=== PATIENT | female | born 1940 | race Hispanic/Latino ===

== ENCOUNTER 2019-08-13 09:49 | Observation (INO) | payer OTHER ==
[~2019-08-13] VITALS: Ht 175.3 cm; Wt 59.2 kg
[~2019-08-13 09:49] MED LIST: AMLO10TA7 PO; ASPI-1197 PO; ATOR40TA69 PO; CARV25TA PO; CLOP75TA14 PO; FISH1CAP49 PO; HYDR-4154 PO; INS7030 SQ; ISOS60TA4 PO; LISI40TA4 PO; MULT-1258 PO; RANO500T3 PO
[2019-08-13 10:52] LABS: APPEARANCE,URINE TURBID (CLEAR); BILIRUBIN,URINE NEGATIVE (NEGATIVE); COLOR,URINE YELLOW (YELLOW); GLUCOSE, URINE (UA) 250 mg/dL (NEGATIVE); KETONES,URINE NEGATIVE (NEGATIVE); LEUKOCYTE ESTERASE ,URINE LARGE (NEGATIVE); NITRATE,URINE NEGATIVE (NEGATIVE); OCCULT BLOOD,URINE SMALL (NEGATIVE); PROTEIN,URINE 100 mg/dL (NEGATIVE); UROBILINOGEN,URINE 0.2 mg/dL (0.2-1.0)
[2019-08-13 11:03] LABS: WBC,URINE Full Field /HPF (0-1)
[2019-08-13 11:08] LABS: BASOPHILS % (AUTO) 0.4 % (0.0-5.0); EOSINOPHILS % (AUTO) 0.8 % (0.0-8.0); LYMPHOCYTES % (AUTO) 9.6 % (21.0-51.0); MEAN CORPUSCULAR HEMOGLOBIN 33.6 pg (27.0-33.0); MEAN CORPUSCULAR HGB CONC 33.4 g/dL (32.0-36.0); MEAN CORPUSCULAR VOLUME 100.6 fL (79-99); MONOCYTES % (AUTO) 6.4 % (3.0-13.0); NEUTROPHILS % (AUTO) 82.8 % (40.0-77.0); PLATELET COUNT (AUTO) 192 K/uL (130-400); RED BLOOD CELL COUNT(AUTO) 3.58 MIL/uL (4.00-5.50); RED CELL DISTRIBUTION WIDTH 19.8 % (11.0-15.5); WHITE BLOOD COUNT (AUTO) 7.4 K/uL (4.8-10.8)
[2019-08-13 11:08] LABS: BACTERIA,URINE Moderate /HPF (None Seen); SQUAMOUS EPITHELIAL CELL,UR 0-2 /HPF (0-2); YEAST,URINE BUDDING Rare /HPF (None Seen)
[2019-08-13 11:15] LABS: CREATININE 5.1 mg/dL (0.5-1.5); POTASSIUM 4.9 mmol/L (3.5-5.1)
[2019-08-13 11:31] LABS: ALBUMIN 3.1 g/dL (3.5-5.0); BILIRUBIN,DIRECT 0.1 mg/dL (0.0-0.3); BILIRUBIN,TOTAL 0.4 mg/dL (0.2-1.0); TOTAL PROTEIN, SERUM 7.5 g/dL (6.0-8.3)
[2019-08-13] MEDS ORDERED: SODIUM CHLORIDE 0.9% 1000ML 1,000 ML IV ONE ×3 (12:59→18:24)
[2019-08-13] MEDS ORDERED: ZOSYN 3.375GM+NS 50ML 50 ML IV ONE ×2 (12:59→13:24)
[2019-08-13] MEDS ORDERED: SODIUM CHLORIDE 0.9% 1000ML 1,000 ML IV SCH (15:41)
[2019-08-13] MEDS ORDERED: ACETAMINOPHEN 325 MG TAB PO PRN (15:45)
[2019-08-13] MEDS ORDERED: ONDANSETRON HCL 4 MG/2 ML VIAL IV PRN (15:45)
[2019-08-13] MEDS ORDERED: LACTULOSE 20 GM/30 ML UDCUP PO PRN (15:45)
[2019-08-14] VITALS (7 sets, daily range): BP systolic 121–164; BP diastolic 40–69
[2019-08-14] MEDS: ZOSYN 3.375GM+NS 50ML 50 ML IV SCH ×3 (01:31→13:25)
[2019-08-14] MEDS ORDERED: BACL10TA PO (01:43)
[2019-08-14] MEDS ORDERED: TRAM50TA4 PO (01:43)
[2019-08-14] MEDS ORDERED: LINA145C PO (01:43)
[2019-08-14] MEDS ORDERED: LINE600T14 PO (01:47)
[2019-08-14 05:30] LABS: BASOPHILS % (AUTO) 0.6 % (0.0-5.0); EOSINOPHILS % (AUTO) 2.4 % (0.0-8.0); LYMPHOCYTES % (AUTO) 10.7 % (21.0-51.0); MEAN CORPUSCULAR HEMOGLOBIN 33.7 pg (27.0-33.0); MEAN CORPUSCULAR HGB CONC 33.1 g/dL (32.0-36.0); MEAN CORPUSCULAR VOLUME 101.9 fL (79-99); MONOCYTES % (AUTO) 8.9 % (3.0-13.0); NEUTROPHILS % (AUTO) 77.4 % (40.0-77.0); NUCLEATED RED BLOOD CELLS 0.2 % (0.0-0.19); PLATELET COUNT (AUTO) 148 K/uL (130-400); RED BLOOD CELL COUNT(AUTO) 3.53 MIL/uL (4.00-5.50); RED CELL DISTRIBUTION WIDTH 19.3 % (11.0-15.5); WHITE BLOOD COUNT (AUTO) 6.4 K/uL (4.8-10.8)
[2019-08-14 05:43] LABS: ALBUMIN 2.6 g/dL (3.5-5.0); BILIRUBIN,TOTAL 0.4 mg/dL (0.2-1.0); CREATININE 3.3 mg/dL (0.5-1.5); PHOSPHORUS 3.9 mg/dL (2.5-4.9); TOTAL PROTEIN, SERUM 6.5 g/dL (6.0-8.3)
[2019-08-14] MEDS: INSULIN HUMULIN R 100 UNIT/ML 3ML SQ SCH ×3 (07:13→21:02)
--- NOTE | 2019-08-14 08:00 | NUR ---
PT AWAKE , BUT FORGETFUL . ORIENTATED TO HER CARE AND ENVIROMENT. REVIEW FALL RISK AND PT IS CLOSE TO NURSES STATION AND CALL LIGHT IN REACH. NOTED NO SOB . OR DISCOMFORT. SKIN CARE PT IS ON A WAFFLE MATTRESS, PT IS A DIALYISIS PT . OR Tuesday, TUESDAY.
--- NOTE | 2019-08-14 09:30 | NUR ---
INITIAL ATTEMPTED TO CONDUCT INTERVIEW WITH PT -UNABLE TO UNDERSTAND HER SENTENCES WILL FOLLOW UP WITH FAMILY IN AM. REVIEWED NOTES- SAW THAT DR. COLBERT STATES THE FAMILY AND PATIENT HAVE BEEN OFFERED SNF PLACEMENT IN THE PAST,, HAVE DECLINED Addendum: 08/15/19 at 0906 by JULISA FONTENOT RN CM Amended: Links added.
--- NOTE | 2019-08-14 09:50 | NUR ---
DR. COLBERT HERE AND REVIEW ER. CARE .WITH CARE TO CONT. .
[2019-08-14] MEDS: ENOXAPARIN SODIUM 30 MG/0.3 ML SQ SCH (13:26)
[2019-08-14] MEDS: FAMOTIDINE/PF 20 MG/2 ML VIAL IV SCH (13:27)
--- NOTE | 2019-08-14 15:00 | NUR ---
[facility] consult Patient assessed as ordered. Patient with pressure ulcer to sacrum of unknown duration. [facility] recommendations submitted. Instructed patient to turn/reposition q 2hrs/prn; patient verbalized understanding but states she needs assistance. Advised patient to use call button to notify staff of need for help. Deejay mattress is in place. Addendum: 08/14/19 at 1722 by SPENCER MCKINLEY RN/LAYO Amended: Links added.
[2019-08-15 03:00] VITALS: BP 146/60
[2019-08-15] MEDS: ZOSYN 3.375GM+NS 50ML 50 ML IV SCH ×2 (03:39→16:02)
[2019-08-15] MEDS: INSULIN HUMULIN R 100 UNIT/ML 3ML SQ SCH ×3 (05:26→17:17)
[2019-08-15] MEDS ORDERED: TRAMADOL HCL 50 MG TABLET PO PRN (07:45)
[2019-08-15] MEDS ORDERED: BACLOFEN 10 MG TABLET PO PRN (07:45)
[2019-08-15 08:00] VITALS: BP 170/59
[2019-08-15] MEDS ORDERED: RANOLAZINE 500 MG TAB.SR.12H PO SCH (09:00)
[2019-08-15] MEDS ORDERED: AMLODIPINE BESYLATE 5 MG TAB PO SCH (09:00)
[2019-08-15] MEDS ORDERED: LINZESS 145 MCG PO SCH (09:00)
[2019-08-15] MEDS ORDERED: HYDRALAZINE HCL 25 MG TABLET PO SCH (09:00)
[2019-08-15] MEDS ORDERED: CARVEDILOL 25 MG TABLET PO SCH (09:00)
[2019-08-15] MEDS ORDERED: CLOPIDOGREL BISULFATE 75 MG TAB PO SCH (09:00)
[2019-08-15] MEDS ORDERED: HONEY 1 APPL/ML TUBE TP SCH (09:00)
[2019-08-15] MEDS ORDERED: LISINOPRIL 40 MG TABLET PO SCH (09:00)
[2019-08-15] MEDS: FAMOTIDINE/PF 20 MG/2 ML VIAL IV SCH (09:35)
[2019-08-15] MEDS: ENOXAPARIN SODIUM 30 MG/0.3 ML SQ SCH (09:36)
[2019-08-15 10:23] LABS: HEMATOCRIT 29.2 % (36-48); MEAN CORPUSCULAR HEMOGLOBIN 34.1 pg (27.0-33.0); MEAN CORPUSCULAR HGB CONC 33.9 g/dL (32.0-36.0); MEAN CORPUSCULAR VOLUME 100.8 fL (79-99); NUCLEATED RED BLOOD CELLS 0.1 % (0.0-0.19); PLATELET COUNT (AUTO) 139 K/uL (130-400); RED CELL DISTRIBUTION WIDTH 19.1 % (11.0-15.5); WHITE BLOOD COUNT (AUTO) 6.1 K/uL (4.8-10.8)
[2019-08-15 10:35] LABS: CREATININE 4.4 mg/dL (0.5-1.5); PHOSPHORUS 5.3 mg/dL (2.5-4.9); POTASSIUM 4.6 mmol/L (3.5-5.1)
[2019-08-15] MEDS ORDERED: ZYVOX 600 MG TAB PO SCH (11:00)
--- NOTE | 2019-08-15 11:51 | NUR ---
PATIENT IS ON DIALYSIS THIS AM. NO PT EVALUATION DONE. Addendum: 08/15/19 at 1152 by RHYS PEREZ PT PT Amended: Links added.
[2019-08-15 12:00] VITALS: BP 142/51
[2019-08-15 12:10] LABS: HEPATITIS A ANTIBODY IGM Negative (Negative); HEPATITIS B CORE IGM Negative (Negative); HEPATITIS Bs ANTIGEN SCREEN P Negative (Negative)
[2019-08-15] MEDS ORDERED: CEFAZOLIN SODIUM 1 GM VIAL ONE (13:58)
[2019-08-15 16:00] VITALS: BP 140/57
--- NOTE | 2019-08-15 17:55 | NUR ---
SPOKE TO PATIENTS DAUGHTER IN LAW, SHE STATES PT HAS NO SNF DAYS AND THEY WILL TAKE PT HOME WANTS PATIENT READY BY 6 PM Addendum: 08/15/19 at 1800 by JULISA FONTENOT RN CM Amended: Links added.
[2019-08-15] MEDS ORDERED: ATORVASTATIN CALCIUM 40 MG TABLET PO SCH (21:00)
== END 2019-08-15 19:00 | disposition home or self-care (01) ==
LOC: EDH 09:49 → EDHIP 15:41 → INTOOBSV 15:41 → 3DH 19:57 → EDHIP 22:30 → 3DH 23:47
PROVIDERS: ADMIT Family Medicine; ATTEND Family Medicine
DX: R41.82 Altered mental status, unspecified (principal); N39.0 Urinary tract infection, site not specified; G93.41 Metabolic encephalopathy; E11.65 Type 2 diabetes mellitus with hyperglycemia; E86.0 Dehydration; E44.0 Moderate protein-calorie malnutrition; R94.31 Abnormal electrocardiogram [ECG] [EKG]; E11.22 Type 2 diabetes mellitus with diabetic chronic kidney disease; I12.0 Hypertensive chronic kidney disease with stage 5 chronic kidney disease or end stage renal disease; N18.6 End stage renal disease; E11.21 Type 2 diabetes mellitus with diabetic nephropathy; E11.51 Type 2 diabetes mellitus with diabetic peripheral angiopathy without gangrene; E78.5 Hyperlipidemia, unspecified; I25.10 Atherosclerotic heart disease of native coronary artery without angina pectoris; D64.9 Anemia, unspecified; Z86.19 Personal history of other infectious and parasitic diseases; Z74.01 Bed confinement status; Z99.2 Dependence on renal dialysis; Z79.02 Long term (current) use of antithrombotics/antiplatelets; Z79.899 Other long term (current) drug therapy
CPT/HCPCS: 36415 ×3; 70450; 71045; 80048 ×2; 80053; 80074; 80076; 81001; 82948 ×7; 83605; 83690; 84100 ×2; 84145; 84484; 85025 ×2; 85027; 87040 ×2; 87088; 93005; 96365; 96366 ×2; 96372 ×2; 96375; 96376; 99284; G0378 ×4; J0690; J1650; J1815 ×3; J2543 ×6; J3490 ×2; J7030 ×3; 90935